=== PATIENT | female | born 1950 ===

== ENCOUNTER 2017-09-09 11:22 | Outpatient (CLI) | payer OTHER | END 2017-09-09 11:25 | disposition home or self-care (01) | LOC: SONOGRAMA 11:22 | DX: E04.1 Nontoxic single thyroid nodule (principal) ==

== ENCOUNTER 2019-11-06 11:52 | Outpatient (CLI) | payer OTHER | END 2019-11-06 12:09 | disposition home or self-care (01) | LOC: SONOGRAMA 11:52 | PROVIDERS: ATTEND Pathology Anatomic Pathology & Clinical Pathology | DX: E04.1 Nontoxic single thyroid nodule (principal) ==

== ENCOUNTER 2020-02-12 15:21 | Outpatient (CLI) | payer OTHER | END 2020-02-12 15:26 | disposition home or self-care (01) | LOC: RAD 15:21 | PROVIDERS: ATTEND Neurological Surgery | DX: M41.86 Other forms of scoliosis, lumbar region (principal); M41.84 Other forms of scoliosis, thoracic region; M54.5 Low back pain ==